=== PATIENT | male | born 1975 | race Caucasian/White ===

== ENCOUNTER → 2024-04-25 | Outpatient (CLI) | payer MEDICAID | END | disposition home or self-care (01) | LOC: RAD 11:02 | PROVIDERS: ATTEND Family Medicine | DX: N28.9 Disorder of kidney and ureter, unspecified (principal) | CPT/HCPCS: 76770 ==

== ENCOUNTER 2024-08-28 12:48 | Outpatient (CLI) | payer MEDICAID | END 2024-08-28 23:59 | disposition home or self-care (01) | LOC: RAD 12:48 | PROVIDERS: ATTEND Student in an Organized Health Care Education/Training Program | DX: M25.551 Pain in right hip (principal); M54.41 Lumbago with sciatica, right side | CPT/HCPCS: 72110; 73502 ==